=== PATIENT | male | born 1940 | race Two or more races ===

== ENCOUNTER 2017-08-12 02:13 | Emergency (ER) | payer MEDICARE, OTHER ==
[~2017-08-12] VITALS: Ht 177.8 cm; Wt 103.4 kg
[2017-08-12 02:25] VITALS: BP 159/69
--- NOTE | 2017-08-12 03:16 | NUR ---
PT'S NOSE CLAMPS REMOVED. NO ACTIVE BLEEDING NOTED. WILL CONTINUE TO MONITOR PT. MD MADE AWARE
--- NOTE | 2017-08-12 03:36 | NUR ---
NO BLEEDING NOTED AFTER INITIAL REMOVAL OF NOSE CLAMP. MADE AWARE. VSS. PT STATES "I FEEL GOOD".
--- NOTE | 2017-08-12 03:52 | NUR ---
DR. BRIZUELA AT BEDSIDE SPEAKING TO PT/FAMILY REGARDING RESULTS.
--- NOTE | 2017-08-12 03:59 | NUR ---
Patient discharged to home in stable condition. Written and verbal after care instructions given. Patient verbalizes understanding of instruction. ambulatory with a steady gait. Pt accompanied by daughter.
== END 2017-08-12 04:12 | disposition home or self-care (01) ==
LOC: ER 02:14
DX: R04.0 Epistaxis (principal); I10 Essential (primary) hypertension
CPT/HCPCS: 99283; A4606; Z7610